=== PATIENT | female | born 1995 | race African-American/Black ===

== ENCOUNTER 2024-03-30 10:23 | Emergency (ER) | payer MEDICAID, OTHER ==
[~2024-03-30] VITALS: Ht 167.6 cm; Wt 92.0 kg
[2024-03-30 10:26] VITALS: O2SAT 99
[2024-03-30 10:44] VITALS: BP 128/88; PULSE 80; RESP 16; TEMP 98.3; O2SAT 99
[2024-03-30] MEDS: BACITRACIN ZINC OINT UDPKT TOP ONE (13:15)
[2024-03-30] MEDS: LIDOCAINE HCL/PF 1% 10 MG/ML 5ML VIAL INFIL ONE (13:15)
[2024-03-30] MEDS: ETHYL CHLORIDE CAN TOP NR (13:35)
[2024-03-30] MEDS ORDERED: OXYC-662 MT (14:37)
[2024-03-30] MEDS ORDERED: CLIN-194 PO (14:47)
[2024-03-30] MEDS ORDERED: KETO10TA2 MT (14:49)
[2024-03-30] MEDS: KETOROLAC 30MG/ML VIAL IV ONE (15:19)
== END 2024-03-30 15:26 | disposition home or self-care (01) ==
LOC: ER 10:23
DX: N75.0 Cyst of Bartholin's gland (principal)
CPT/HCPCS: 99284; 96374; 56420; J1885; J2003; A4663; A4606